=== PATIENT | male | born 1975 | race African-American/Black ===

== ENCOUNTER 2018-05-19 21:21 | Inpatient (IN) ==
[2018-05-19] MEDS ORDERED: DIPH/TET/ACEL PERT BOOSTER VACCINE 0.5 ML VIAL IM ONE (21:38)
[2018-05-19] MEDS ORDERED: SODIUM CHLORIDE 0.9% 1,000 ML IV STA (21:38)
[2018-05-19] MEDS ORDERED: HYDROmorphone 2 MG/1 ML VIAL IV ONE (21:39)
[2018-05-19] MEDS ORDERED: ONDANSETRON 4 MG/2 ML VIAL IV STA (21:39)
[2018-05-19 22:15] LABS: Basophils % 0.6 % (0.0-0.8); Eosinophils # 0.1 10*3/uL (0.0-0.87); Eosinophils % 2.5 % (0.00-10.9); Hematocrit 36.3 VOL% (42.0-52.0); Hemoglobin 11.8 GM/DL (14.0-18.0); Immature Granulocytes % 0.2 %; Immature Granulocytes Absolute 0.01 #; Lymphocytes # 1.6 10*3/uL (1.4-4.0); Lymphocytes % 32.2 % (21.2-54.2); Mean Corpuscular HGB Conc 32.5 GM/DL (32-36); Mean Corpuscular Hemoglobin 27 PG (27-34); Mean Corpuscular Volume 84.4 FL (87-102); Mean Platelet Volume 10.8 FL (9.6-12.0); Monocytes # 0.4 10*3/uL (0.11-0.8); Monocytes % 8.9 % (1.7-12.7); Neutrophils # 2.7 10*3/uL (1.4-7.4); Neutrophils % 55.6 % (38.7-73.9); Platelet Count 209 T/CUMM (130-400); Red Cell Distribution Width 13.7 % (9.3-17.3); White Blood Count 4.8 T/CUMM (4-12)
[2018-05-19] MEDS ORDERED: HYDROmorphone 2 MG/1 ML VIAL IV STA (22:50)
[2018-05-20] MEDS ORDERED: PROMETHAZINE 25 MG/1 ML VIAL IM STA (00:16)
[2018-05-20] MEDS ORDERED: SODIUM CHLORIDE 0.9% 1,000 ML IV STA (00:57)
[2018-05-20 01:00] LABS: Albumin 3.5 G/DL (3.4-5.0); Bilirubin,Total 1.1 MG/DL (0.2-1.0); Calcium 8.5 MG/DL (8.5-10.1); Total Protein 6.8 G/DL (6.4-8.3)
[2018-05-20 01:01] LABS: Osmolality,Calculated 280.3 MOS/KG (273-304); Potassium 3.7 MMOL/L (3.5-5.1)
[2018-05-20 01:03] LABS: INR 1.1; PT Patient Result 11.7 SECS
[2018-05-20] MEDS ORDERED: ONDANSETRON 4 MG/2 ML VIAL IV PRN ×2 (02:51→15:20)
[2018-05-20] MEDS ORDERED: HYDROmorphone 2 MG/1 ML VIAL IV PRN ×2 (02:51→15:20)
[2018-05-20] MEDS ORDERED: MAGNESIUM HYDROXIDE SUSP 30 ML UDCUP PO PRN (02:51)
[2018-05-20] MEDS: ceFAZolin 2,000 MG in PREMIX 1 EACH IV SCH ×2 (11:29→18:04)
[2018-05-20] MEDS ORDERED: BUPIVACAINE 0.5% 50 ML VIAL ONE (13:45)
[2018-05-20] MEDS ORDERED: BACITRACIN OINT 0.9 GM PACK TOP ONE (13:45)
[2018-05-20] MEDS ORDERED: SEVOFLURANE 1 UNIT/15 MINUTE INH ONE (15:04)
[2018-05-20] MEDS ORDERED: ACETAMINOPHEN 325 MG TABLET PO PRN (15:04)
[2018-05-20] MEDS ORDERED: KETOROLAC 30 MG/1 ML VIAL IV PRN (15:04)
[2018-05-20] MEDS ORDERED: PROPOFOL 200 MG/20 ML VIAL IV ONE (15:04)
[2018-05-20] MEDS ORDERED: ACETAMINOPHEN 1,000 MG/100 ML VIAL IV ONE (15:05)
[2018-05-20] MEDS ORDERED: PHENYLEPHRINE 1 MG/10 ML SYRINGE IV ONE (15:05)
[2018-05-20] MEDS ORDERED: MIDAZOLAM 2 MG/2 ML VIAL ONE (15:05)
[2018-05-20] MEDS ORDERED: KETOROLAC 30 MG/1 ML VIAL ONE (15:05)
[2018-05-20] MEDS ORDERED: fentaNYL 100 MCG/2 ML VIAL ONE (15:05)
[2018-05-20] MEDS ORDERED: LACTATED RINGERS 1,000 ML IV ONE (15:05)
[2018-05-20] MEDS ORDERED: ONDANSETRON 4 MG/2 ML VIAL ONE (15:05)
[2018-05-20] MEDS ORDERED: LACTATED RINGERS 1,000 ML IV SCH (15:30)
[2018-05-20] MEDS: LACTATED RINGERS 1,000 ML IV SCH (17:50)
[2018-05-21] MEDS: ceFAZolin 2,000 MG in PREMIX 1 EACH IV SCH ×3 (02:48→17:49)
[2018-05-21 06:56] LABS: Basophils % 0.7 % (0.0-0.8); Eosinophils # 0.1 10*3/uL (0.0-0.87); Eosinophils % 1.8 % (0.00-10.9); Hematocrit 35.2 VOL% (42.0-52.0); Hemoglobin 11.5 GM/DL (14.0-18.0); Immature Granulocytes % 0.3 %; Lymphocytes # 1.3 10*3/uL (1.4-4.0); Mean Corpuscular HGB Conc 32.7 GM/DL (32-36); Mean Corpuscular Hemoglobin 28 PG (27-34); Mean Corpuscular Volume 84.8 FL (87-102); Mean Platelet Volume 11.3 FL (9.6-12.0); Monocytes # 0.5 10*3/uL (0.11-0.8); Monocytes % 7.5 % (1.7-12.7); Neutrophils # 4.1 10*3/uL (1.4-7.4); Neutrophils % 68.7 % (38.7-73.9); Platelet Count 189 T/CUMM (130-400); Red Blood Count 4.15 MC/CUMM (3.8-5.5); Red Cell Distribution Width 14.1 % (9.3-17.3)
[2018-05-21 06:57] LABS: Immature Granulocytes Absolute 0.02 #
[2018-05-21 07:23] LABS: Calcium 7.9 MG/DL (8.5-10.1); Osmolality,Calculated 279.1 MOS/KG (273-304); Potassium 3.7 MMOL/L (3.5-5.1)
[2018-05-21] MEDS: LACTATED RINGERS 1,000 ML IV SCH (22:30)
[2018-05-22] MEDS: ceFAZolin 2,000 MG in PREMIX 1 EACH IV SCH ×3 (03:27→18:21)
[2018-05-22 05:22] LABS: Basophils % 0.5 % (0.0-0.8); Eosinophils # 0.2 10*3/uL (0.0-0.87); Eosinophils % 3.6 % (0.00-10.9); Hematocrit 34.2 VOL% (42.0-52.0); Hemoglobin 11.4 GM/DL (14.0-18.0); Immature Granulocytes % 0.2 %; Immature Granulocytes Absolute 0.01 #; Lymphocytes # 1.8 10*3/uL (1.4-4.0); Mean Corpuscular HGB Conc 33.3 GM/DL (32-36); Mean Corpuscular Hemoglobin 27 PG (27-34); Mean Platelet Volume 11.5 FL (9.6-12.0); Monocytes # 0.4 10*3/uL (0.11-0.8); Monocytes % 7.4 % (1.7-12.7); Neutrophils # 3.4 10*3/uL (1.4-7.4); Neutrophils % 57.3 % (38.7-73.9); Platelet Count 190 T/CUMM (130-400); Red Blood Count 4.17 MC/CUMM (3.8-5.5); Red Cell Distribution Width 13.5 % (9.3-17.3); White Blood Count 5.9 T/CUMM (4-12)
[2018-05-22 12:03] VITALS: BP 144/92
== END 2018-05-22 18:15 | disposition home or self-care (01) | DRG 514 ==
LOC: N.ED 21:21 → N.EDINP 23:50 → N.3E 05-20 02:08
PROVIDERS: ADMIT Orthopaedic Surgery; ATTEND Orthopaedic Surgery